=== PATIENT | male | born 1955 | race Caucasian/White ===

== ENCOUNTER 2020-10-25 18:55 | Emergency (ER) | payer OTHER ==
[~2020-10-25] VITALS: Ht 180.3 cm; Wt 69.4 kg
[~2020-10-25 18:55] MED LIST: AMOXICILLIN500 M2 PO; ANTIVERT/2525 M1 PO; ATIVAN0.5 MG PO; FLONASE ALLERG9.9 ML NS; KEFLEX500 MG PO; ZANTAC150 MG PO
[2020-10-25 19:59] LABS: BASO # 0.1 10*3/uL (0.0-0.1); EOS % 0.5 % (1.0-4.0); HEMATOCRIT 44.2 % (42.0-52.0); LYMPH # 1.9 10*3/uL (1.3-4.4); LYMPH % 31.9 % (27.0-41.0); MEAN CORPUSCULAR HGB 35.4 pg (27.0-31.0); MEAN CORPUSCULAR HGB CONC 33.7 g/dl (33.0-37.0); MONO # 0.4 10*3/uL (0.1-1.0); MONO % 7.3 % (3.0-9.0); NEUT # 3.5 10*3/uL (2.3-7.9); PLATELET COUNT AUTOMATED 152 10*3/uL (130-400); RED BLOOD COUNT 4.21 10*6/uL (4.50-5.90); RED CELL DISTRI WIDTH 11.9 % (0-14.5); WHITE BLOOD COUNT 5.9 10*3/uL (4.8-10.8)
[2020-10-25 20:01] LABS: BILIRUBIN Negative (Negative); BLOOD Trace-Lysed (Negative); CLARITY Clear (Clear); COLOR Yellow (Yellow); GLUCOSE Negative (Negative); KETONE Negative (Negative); LEUKO ESTERASE Negative (Negative); NITRITE Negative (Negative); PH 5.5 (4.5-8.0); SPECIFIC GRAVITY <= 1.005 (1.001-1.030); UROBILINOGEN 0.2 E.U./dl (0.0-1.0)
[2020-10-25 20:12] LABS: EPITHELIAL CELLS 0-2; RBC 0-2 rbc/hpf (0-2)
[2020-10-25 20:13] LABS: BACTERIA TRACE
[2020-10-25 20:16] LABS: ALBUMIN 3.7 gm/dl (3.1-4.5); ALKALINE PHOSPHATASE 94 U/L (45-117); BUN 5 mg/dl (7-24); CHLORIDE 100 mmol/L (98-107); CREATININE 0.68 mg/dL (0.70-1.30); POTASSIUM 3.6 mmol/L (3.5-5.1); SGOT/AST 77 IU/L (3-35); SGPT/ALT 78 U/L (12-78); SODIUM 135 mmol/L (136-145); TOTAL PROTEIN 7.8 gm/dL (6.4-8.2)
== END 2020-10-25 20:58 | disposition home or self-care (01) ==
LOC: ED 18:55
PROVIDERS: Internal Medicine
DX: E87.8 Other disorders of electrolyte and fluid balance, not elsewhere classified (principal); R79.89 Other specified abnormal findings of blood chemistry; F10.10 Alcohol abuse, uncomplicated; J45.909 Unspecified asthma, uncomplicated; Y90.8 Blood alcohol level of 240 mg/100 ml or more; Z79.899 Other long term (current) drug therapy; Z86.73 Personal history of transient ischemic attack (TIA), and cerebral infarction without residual deficits

== ENCOUNTER 2022-08-09 00:19 | Emergency (ER) | payer MEDICARE, MEDICAID ==
[~2022-08-09] VITALS: Ht 177.8 cm; Wt 113.4 kg
[2022-08-09] MEDS ORDERED: PREDNISONE20 M1 PO (01:26)
[2022-08-09] MEDS ORDERED: TRAMADOL HCL50 MG PO (01:26)
== END 2022-08-09 01:33 | disposition home or self-care (01) ==
LOC: ED 00:19
DX: M17.11 Unilateral primary osteoarthritis, right knee (principal)

== ENCOUNTER 2024-10-10 18:58 | Emergency (ER) | payer OTHER ==
[~2024-10-10] VITALS: Ht 170.1 cm; Wt 65.8 kg
[~2024-10-10 18:58] MED LIST changes: +PREDNISONE20 M1 PO; +TRAMADOL HCL50 MG PO
[2024-10-10 19:14] LABS: BILIRUBIN Negative (Negative); BLOOD 1+ (Negative); CLARITY Turbid (Clear); COLOR Yellow (Yellow); GLUCOSE Negative (Negative); KETONE Negative (Negative); LEUKO ESTERASE 3+ (Negative); NITRITE Negative (Negative); PH 5.5 (4.5-8.0); SPECIFIC GRAVITY <= 1.005 (1.001-1.030); UROBILINOGEN 0.2 E.U./dl (0.0-1.0)
[2024-10-10 19:26] LABS: BACTERIA 4+; WBC TNTC wbc/hpf (0-5)
[2024-10-10] MEDS ORDERED: Ciprofloxacin Hydrochloride 500 MG TAB PO ONE (19:40)
[2024-10-10] MEDS ORDERED: CIPRO500 MG PO (19:44)
== END 2024-10-10 21:22 | disposition home or self-care (01) ==
LOC: ED 18:58
PROVIDERS: Internal Medicine
DX: N39.0 Urinary tract infection, site not specified (principal)